=== PATIENT | female | born 1995 | race African-American/Black ===

== ENCOUNTER → 2018-04-23 | Outpatient (CLI) | payer OTHER | LOC: M RAD 15:14 | DX: M25.572 Pain in left ankle and joints of left foot (principal) | CPT/HCPCS: 73721 ==

== ENCOUNTER 2018-09-30 20:54 | Emergency (ER) | payer OTHER ==
[~2018-09-30] VITALS: Ht 160 cm; Wt 72.7 kg
[2018-09-30] MEDS ORDERED: ALL10TAB28 PO (21:11)
[2018-09-30] MEDS ORDERED: FLUO20CA8 PO (21:11)
[2018-09-30] MEDS ORDERED: TRAZO50TA PO (21:11)
[2018-09-30] MEDS ORDERED: KETOROLAC 30 MG/ML VIAL (J1885) IM ONE (22:00)
[2018-09-30] MEDS ORDERED: diphenhydrAMINE INJ 50MG/ML VIAL (J1200) IV ONE (22:00)
[2018-09-30] MEDS ORDERED: NS 1,000 ML IV ONE (22:00)
[2018-09-30] MEDS ORDERED: PROCHLORPERAZINE 10 MG/2 ML VIAL (J0780) IV ONE (22:15)
--- NOTE | 2018-09-30 22:36 | REPVR ---
EXAM: CT Head Without Contrast EXAM DATE/TIME: 09/30/18 (10:04pm) CLINICAL HISTORY: 22 year old female with abrupt onset of headache TECHNIQUE: Imaging protocol: Axial computed tomography images of the head/brain without contrast. Radiation optimization: All CT scans at this facility use at least one of these dose optimization techniques: automated exposure control; mA and/or kV adjustment per patient size (includes targeted exams where dose is matched to clinical indication); or iterative reconstruction. COMPARISON: No relevant prior studies available FINDINGS: Brain: Unremarkable. No acute hemorrhage. No significant white matter disease. No cerebral edema. Ventricles: Normal. No ventriculomegaly. Bones/joints: Unremarkable. No acute fracture. Sinuses: Visualized sinuses are unremarkable. No acute sinusitis. Mastoid air cells: Visualized mastoid air cells are unremarkable. No mastoid effusion. Soft tissues: Unremarkable. IMPRESSION: No acute intracranial pathology is appreciated. Electronically signed by: Cece Kunz On 09/30/2018 22:36:23 PM
[2018-09-30] MEDS ORDERED: KETOROLAC 30 MG/ML VIAL (J1885) IV ONE (23:00)
[2018-09-30 23:38] VITALS: BP 124/82
== END 2018-09-30 23:40 | disposition home or self-care (01) ==
LOC: M ED 20:54
DX: G44.40 Drug-induced headache, not elsewhere classified, not intractable (principal); F33.9 Major depressive disorder, recurrent, unspecified; Z79.899 Other long term (current) drug therapy
CPT/HCPCS: 70450; 96361; 96374; 96375; 99284; J0780; J1200; J1885